=== PATIENT | female | born 1970 | race Caucasian/White ===

== ENCOUNTER → 2016-09-20 | Outpatient (CLI) | payer OTHER ==
--- NOTE | 2016-09-20 16:01 | MA ---
Screening Digital Mammogram With iCAD Analysis Clinical Indications: Routine screening. Technique: Standard cephalocaudal and mediolateral oblique projections were obtained. This examinatio n was processed by the iCAD computer aided detection system. Comparison: September 2015, July 2014, May 2013, November 2011, April 2010, April 2009, A ugust 2006. Breast density: Type B; Scattered fibroglandular densities. Findings: CAD was reviewed. No masses, suspicious calcifications or other signs of malignancy are id entified. There has been no significant change in the appearance of either breast. Impression: Negative mammogram. BI-RADS 1. Recommendation: Routine mammographic screening in one year as long as physical examination is negativ [facility]. Negative mammography should not preclude additional workup of a clinically suspicious finding. The patient's information is entered into a reminder system with a target due date for her next mammo gram.
== END ==
LOC: FIMAGING 15:06
DX: Z12.31 Encounter for screening mammogram for malignant neoplasm of breast (principal)
CPT/HCPCS: G0202

== ENCOUNTER → 2017-10-05 | Outpatient (CLI) | payer OTHER | LOC: FIMAGING 16:11 | PROVIDERS: ATTEND Obstetrics & Gynecology | DX: Z12.31 Encounter for screening mammogram for malignant neoplasm of breast (principal) ==

== ENCOUNTER 2017-12-23 21:52 | Emergency (ER) | payer OTHER ==
[2017-12-23 22:09] VITALS: BP 115/75
--- NOTE | 2017-12-23 22:10 | EDPHY ---
H & P Stated Complaint: vision troubles, generalized body numbness Time Seen by Provider: 12/23/17 22:10 HPI/ROS: HPI CHIEF COMPLAINT: Blurry vision times 30 min now gone HISTORY OF PRESENT ILLNESS: This patient very pleasant 47-year-old female, she has a history of vertigo, and recently diagnosed few weeks ago of some neuropathy. She still undergoing workup for. She states that she had a balance issue in saw Dr. Edward siddiqui with Neurology as well as Dr. Mckeon with ENT. She had an MRI of her brain she reports to me was normal. She states she is due to follow up with a supply officer to help with possible diffuse body numbness and tingling. She presents emergency room tonight as she woke up from sleep with no particular reason however noticed for 30 min that her vision was blurry out of both of her eyes. She states she had a foggy sensation in front of her eyes. There was no loss of vision. No curtain drop, no blackness, no eye pain or headache. She states this went away after 30 min. She believes it was out of both eyes. She never lost vision. She now decided come the emergency room her symptoms have completely resolved. Past Medical History: Vertigo, whole body numbness tingling Past Surgical History: Denies recent surgical history Social History: Denies drugs alcohol tobacco. Family History: The noncontributory ROS REVIEW OF SYSTEMS: A comprehensive 10 point review of systems is otherwise negative aside from elements mentioned in the history of present illness. Exam Constitutional appears well nontoxic no acute distress triage nursing summary reviewed, vital signs reviewed, awake/alert. Eyes normal conjunctivae and sclera, EOMI, PERRLA. Eye exam visual acuity reviewed. Both eyes anterior chambers are normal, no flare, conjunctiva normal both eyes, globes are soft. No eye pain. Posterior eye exam without dilatation is unremarkable no evidence of vitreous hemorrhage. HENT normal inspection, atraumatic, moist mucus membranes, no epistaxis, neck supple/ no meningismus, no raccoon eyes. Respiratory clear to auscultation bilaterally, normal breath sounds, no respiratory distress, no wheezing. Cardiovascular rate normal, regular rhythm, no murmur, no edema, distal pulses normal. Gastrointestinal soft, non-tender, no rebound, no guarding, normal bowel sounds, no distension, no pulsatile mass. Genitourinary no CVA tenderness. Musculoskeletal no midline vertebral tenderness, full range of motion, no calf swelling, no tenderness of extremities, no meningismus, good pulses, neurovascularly intact. Skin pink, warm, & dry, no rash, skin atraumatic. Neurologic no focal neuro deficit, awake, alert and oriented x 3, AAOx3, moves all 4 extremities equally, motor intact, sensory intact, CN II-XII intact, normal cerebellar, normal vision, normal speech. Psychiatric normal mood/affect. Heme/Lymph/Immune no lymphadenopathy. Differential Diagnosis: Includes but is not limited to in a particular order: Blurry vision including retinal detachment, vitreous hemorrhage, CVA, other neurological process, brain bleed, anxiety, glaucoma Medical Decision Making: Plan for this patient her symptoms have completely resolved and she has a normal neurological exam here. No headache. Will check visual acuity. Additionally I will touch base with Ophthalmology. Re-evaluation: 2228: I spoke with Dr. Vera with Ophthalmology and discussed the case in detail with him. He did not have any further recommendations tonight in terms of any further care he does like to see the patient in the office on Monday or Monday for a full I examined dilatation. Given that the patient's symptoms resolved he feels comfortable allowing her to go home tonight. I discussed return precautions with the patient. She understands if she has any further trouble with her vision including visual disturbance, loss of vision , eye pain or headache she should return emergency room she understands this. Additionally will give her for Dr. Vera. 2229: Visual acuity is been reviewed and is normal. Eye exam here in emergency room is normal. No focal neuro deficit on exam. 2325: Patient re-evaluated this time resting comfortably no acute distress. No further visual disturbance. Visual acuity reviewed. Discussed case with Ophthalmology. She has no focal neuro deficit on exam neurological exam is unremarkable. Recommend follow up with Ophthalmology on Monday. Return precautions discussed. She understands return emergency room she develops any worsening symptoms visual disturbance questions or concerns. Source: Patient - Personal History LMP (Females 10-55): Irregular - Medical/Surgical History Hx Asthma: No Hx Chronic Respiratory Disease: No Hx Diabetes: No Hx Cardiac Disease: No Hx Renal Disease: No Hx Cirrhosis: No Hx Alcoholism: No Hx HIV/AIDS: No Hx Splenectomy or Spleen Trauma: No Other PMH: maldedmbarkment syndrome - Social History Smoking Status: Never smoked Constitutional: Initial Vital Signs Temperature (C) 36.8 C 12/23/17 21:54 Heart Rate 82 12/23/17 21:54 Respiratory Rate 18 12/23/17 21:54 Blood Pressure 128/91 H 12/23/17 21:54 O2 Sat (%) 99 12/23/17 21:54 O2 Delivery Mode Room Air Allergies/Adverse Reactions: No Known Allergies Allergy (Unverified 12/23/17 21:54) Departure - Departure Disposition: Home, Routine, Self-Care Clinical Impression: Visual disturbance Condition: Good Instructions: Blurred Vision (ED) Additional Instructions: 1. Return emergency room if her symptoms recur. 2. Please follow up with Ophthalmology. Please call there Monday for an appointment. Referrals: April Penaloza MD [Primary Care Provider] - As per Instructions David Vera MD [Medical Doctor] - As per Instructions
== END 2017-12-23 23:32 | disposition home or self-care (01) ==
DX: H53.9 Unspecified visual disturbance (principal)

== ENCOUNTER → 2018-10-30 | Outpatient (CLI) | payer OTHER | LOC: FIMAGING 15:17 | PROVIDERS: ATTEND Internal Medicine | DX: Z12.31 Encounter for screening mammogram for malignant neoplasm of breast (principal) ==